=== PATIENT | male | born 1990 | race Caucasian/White ===

== ENCOUNTER 2017-10-29 08:40 | Inpatient (IN) | payer BC ==
[2017-10-29 09:47] LABS: #Basophils 0.1 thou/uL (0.0-0.2); #Eosinphils 0.2 thou/uL (0.0-0.7); #Lymphocytes 1.7 thou/uL (1.20-3.40); #Monocytes 0.5 thou/uL (0.11-0.59); #Neutrophils 2.8 thou/uL (1.40-6.50); %Basophils 1.4 % (0.0-1.0); %Eosinophils 3.3 % (0.0-10.0); %Lymphocytes 32.1 % (21.0-51.0); %Monocytes 9.7 % (0.0-10.0); %Neutrophils 53.5 % (42.0-75.0); Hemoglobin 15.4 g/dL (14.0-18.0); Mean Corpuscular HGB CONC 35.6 g/dL (32.0-36.0); Mean Corpuscular Hemoglobin 31.3 pg (27.0-31.0); Platelet Count 215 thou/uL (130-400); RBC Distribution Width 12.1 % (11.5-14.5); Red Blood Cell (RBC) Count 4.93 mill/uL (4.70-6.10); White Blood Cell (WBC) Count 5.3 thou/uL (4.8-10.8)
[2017-10-29 10:07] LABS: ALT (SGPT) 41 U/L (8-55); AST (SGOT) 28 U/L (5-34); Albumin 4.3 g/dL (3.5-5.0); Alkaline Phosphatase 44 U/L (40-150); Anion Gap 10 mmol/L (10-20); BUN (Urea Nitrogen) 13 mg/dL (8.9-20.6); Bilirubin, Total 0.4 mg/dL (0.2-1.2); Calc. Creatinine Clearance 0 mL/min (70-130); Calcium 9.7 mg/dL (7.8-10.44); Carbon Dioxide 26 mmol/L (22-29); Chloride 105 mmol/L (98-107); Estimated GFR-MDRD Greater than 90; Globulin 3.5 g/dL (2.4-3.5); Glucose 103 mg/dL (70-105); Potassium 4.3 mmol/L (3.5-5.1); Protein, Total 7.8 g/dL (6.0-8.3); Sodium 137 mmol/L (136-145)
[2017-10-29] MEDS ORDERED: cloNIDine 0.1 MG TAB PO PRN (11:47)
[2017-10-29] MEDS ORDERED: Lorazepam 1 MG TAB PO PRN (11:47)
[2017-10-29] MEDS ORDERED: traMADol HCl 50 MG TAB PO PRN (11:47)
[2017-10-29] MEDS ORDERED: hydrALAZINE 20 MG/ML VIAL SLOW IVP PRN (11:47)
[2017-10-29] MEDS ORDERED: Bisacodyl 5 MG TAB PO PRN ×2 (11:47)
[2017-10-29] MEDS ORDERED: Nitroglycerin 0.4 MG TAB (25 Tab Bottle) SL PRN (11:47)
[2017-10-29] MEDS ORDERED: Ondansetron HCl/PF 4 MG/2 ML Vial IVP PRN (11:47)
[2017-10-29] MEDS ORDERED: Acetaminophen 325 MG TAB PO PRN (11:47)
[2017-10-29] MEDS ORDERED: Mag-Al 1200 mg/1200 mg/30 ML UDCUP PO PRN (11:47)
[2017-10-29] MEDS ORDERED: Diabetic Tussin 200 MG/10 ML UDCUP PO PRN (11:47)
[2017-10-29] MEDS ORDERED: Benzonatate 100 MG CAP PO PRN (11:47)
[2017-10-29] MEDS ORDERED: Calcium Carbonate 500 MG ChewTAB PO PRN (11:47)
[2017-10-29] MEDS ORDERED: Loratadine 10 MG TAB PO PRN (11:47)
[2017-10-29] MEDS ORDERED: Senokot 8.6 MG TAB PO PRN ×2 (11:47)
--- NOTE | 2017-10-29 12:34 | RAD ---
TWO VIEWS LEFT TIBIA AND FIBULA: HISTORY: Cellulitis. FINDINGS: AP and lateral views left tibia and fibula demonstrate no evidence of left tibial or fibular fracture s, subluxations, or bony lesions. IMPRESSION: Normal 2 views left tibia and fibula. POS: [facility]
--- NOTE | 2017-10-29 13:03 | ULT ---
VENOUS DOPPLER: HISTORY: Left lower extremity pain and edema. FINDINGS: Multiple longitudinal and transverse images of the left lower extremity venous system are obtained us ing a multihertz linear ray transducer. Real-time, color flow, and spectral waveform Doppler analysi s is used to evaluate the left lower extremity venous system. Images demonstrate a left enlarged groin lymph node having 3 dimensional measurements of 3.3 x 1.5 x approximately 6 cm. The left common femoral, superficial femoral, femoral profunda, popliteal, posterior tibial vein, pos t-trifurcation veins, and left greater saphenous vein are obtained. IMPRESSION: 1. Enlarged left groin lymph node. 2. No evidence of left lower extremity deep venous thrombosis. POS: [facility]
[2017-10-29 13:24] VITALS: BMI 38.9
[2017-10-29] MEDS ORDERED: PROVENTIL INHALER 6.7 G (200 INHALATIONS) INH PRN (13:26)
--- NOTE | 2017-10-29 13:59 | HP ---
PRIMARY CARE PHYSICIAN: [facility]. HISTORY OF PRESENTING ILLNESS: Mr. Mack is a 27-year-old healthy male without any significant past medical history who presented to the emergency room with complaints of worsening of left lower extremity redness and pain. History is mainly obtained by the patient himself and electronic medical records have been reviewed. Case has been discussed with the admitting ER physician, Dr. Bearden. According to Mr. Mack, he has been feeling fine up until Tuesday of this week and today, Tuesday. He started to notice that his left leg is turning red on Tuesday and by Tuesday he was running high-grade fever with chills. He presented to the outside clinic on Tuesday and was prescribed clindamycin, which he has been taking for 3 days without improvement. He actually noticed that his redness and pain is worse, so he presented to the ER. He denies any trauma or insect bites. [place], but was wearing jeans and boots. Otherwise, he denies any other recent illnesses. He denies any chest pain, shortness of breath, nausea, vomiting, diarrhea, abdominal pain, muscle weakness or joint pain. No rash. Upon presentation to the emergency room, he was hemodynamically stable. He underwent an x-ray of the tibia and fibula area, which was unremarkable. He also underwent a lower extremity ultrasound, which was negative for DVT. He was given vancomycin and Zosyn and is now being admitted to medical floor for left lower extremity cellulitis. PAST MEDICAL HISTORY: History of mild intermittent asthma. PAST SURGICAL HISTORY: Tonsillectomy and adenoidectomy and ear tube at least 13 times. PSYCHIATRIC HISTORY: None. SOCIAL HISTORY: He has no history of drug, tobacco or alcohol abuse. He drinks socially. FAMILY HISTORY- Mom ands aunt with breast cancer. Great Grandparents had stroke and heart disease ALLERGIES: No known medication allergies. CURRENT MEDICATIONS: Proventil as needed. The patient does not have to use it quite often. REVIEW OF SYSTEMS: It is negative except for those mentioned in the history and physical. Constitutional: Weight loss or gain, ability to conduct usual activities. Skin: Rash, itching. Eyes: Double vision, pain. ENT/Mouth: Nose bleeding, neck stiffness, pain, tenderness. Cardiovascular: Palpitations, dyspnea on exertion, orthopnea. Respiratory: Shortness of breath, wheezing, cough, hemoptysis, fever or night sweats. Gastrointestinal: Poor appetite, abdominal pain, heartburn, nausea, vomiting, constipation, or diarrhea. Genitourinary: Urgency, frequency, dysuria, nocturia. Musculoskeletal: Pain, swelling. Neurologic/Psychiatric: Anxiety, depression. Allergy/Immunologic: Skin rash, bleeding tendency. PHYSICAL EXAMINATION: VITAL SIGNS: Upon presentation, blood pressure 125/87, pulse of 80, respirations 18, saturating 97% on room air and temperature 98.1. GENERAL: No acute distress, awake, alert and oriented x3. HEENT: Mucous membrane is moist and pink. No oropharyngeal exudate or erythema. Head is normocephalic and atraumatic. Pupils are equal, reactive to light and accommodation. Extraocular movement intact. NECK: Supple without any lymphadenopathy, JVD or bruit. CHEST: Clear to auscultation without any wheezing, rales or rhonchi. Rhythm is regular without any murmur, rubs or gallops. ABDOMEN: Obese, soft, nontender and nondistended. Positive bowel sounds. EXTREMITIES: Show area of cellulitis in the left lower leg, extending from midline to the sides, encroaching upwards, but limited to below the knee and up from the ankle. He has some tenderness and warmth to this area. He has drawn a boundary to this redness and the redness extends beyond that boundary. NEUROLOGIC: Nonfocal. SKIN: The cellulitic rash on the lower extremity as above, otherwise no other rashes, feels warm and dry to touch. PSYCHIATRIC: Normal affect. LABORATORY DATA: CBC is unremarkable. Serum chemistries unremarkable. C- reactive protein is elevated to 4.47. Lactic acid is normal at 0.8. IMAGING DATA: X-ray of the tibia and fibula by my review has no evidence of any osseous abnormalities or any bony lesions. Lower extremity ultrasound is negative for DVT, left leg. It does show enlarged left groin lymph node. IMPRESSION AND PLAN: 1. Cellulitis of left lower extremity. The patient will be continued on the antibiotics started in the emergency room, namely vancomycin and Zosyn. Blood cultures have been started. He has failed outpatient treatment with clindamycin. We will add probiotics as well. He most likely will require at least 2-3 days of IV antibiotics for clinical improvement. Monitor clinical progress on a daily basis. 2. Deep venous thrombosis and gastrointestinal prophylaxis. 3. History of asthma. We will put him on nebulizers as needed and albuterol as needed. The patient is not having any symptoms related to his asthma at this time. DISPOSITION: Mr. Mack is currently being admitted for failed outpatient treatment of left lower extremity cellulitis. Estimated length of stay is at least 2-3 midnights. MTDD
[2017-10-29] MEDS: Piperacillin/Tazobactam 3.375 GM in Sodium Chloride 0.9% 100 ML IVPB SCH ×2 (14:23→20:24)
[2017-10-29] MEDS ORDERED: Vancomycin HCl 1 GM in Premix Bag 1 BAG IVPB SCH (21:00)
[2017-10-30] MEDS: Piperacillin/Tazobactam 3.375 GM in Sodium Chloride 0.9% 100 ML IVPB SCH ×4 (03:04→20:15)
[2017-10-30 04:54] LABS: #Eosinphils 0.3 thou/uL (0.0-0.7); #Lymphocytes 2.2 thou/uL (1.20-3.40); #Monocytes 0.6 thou/uL (0.11-0.59); #Neutrophils 3.5 thou/uL (1.40-6.50); %Basophils 0.7 % (0.0-1.0); %Eosinophils 5.1 % (0.0-10.0); %Lymphocytes 32.9 % (21.0-51.0); %Monocytes 9.2 % (0.0-10.0); %Neutrophils 52.2 % (42.0-75.0); Hemoglobin 13.2 g/dL (14.0-18.0); Mean Corpuscular HGB CONC 35.2 g/dL (32.0-36.0); Mean Corpuscular Hemoglobin 31.1 pg (27.0-31.0); Mean Corpuscular Volume 88.4 fl (80.0-94.0); Mean Platelet Volume 7.5 fL (7.4-10.4); Platelet Count 220 thou/uL (130-400); RBC Distribution Width 11.9 % (11.5-14.5); Red Blood Cell (RBC) Count 4.24 mill/uL (4.70-6.10); White Blood Cell (WBC) Count 6.8 thou/uL (4.8-10.8)
[2017-10-30 05:28] LABS: Anion Gap 9 mmol/L (10-20); BUN (Urea Nitrogen) 11 mg/dL (8.9-20.6); Calc. Creatinine Clearance 229 mL/min (70-130); Calcium 8.6 mg/dL (7.8-10.44); Carbon Dioxide 25 mmol/L (22-29); Chloride 107 mmol/L (98-107); Estimated GFR-MDRD Greater than 90; Glucose 116 mg/dL (70-105); Potassium 3.8 mmol/L (3.5-5.1); Sodium 137 mmol/L (136-145)
[2017-10-30] MEDS: Enoxaparin Sodium 40 MG/0.4 ML SYRINGE SC SCH (08:01)
[2017-10-30] MEDS: Saccharomyces boulardii 250 MG CAP PO SCH (08:02)
--- NOTE | 2017-10-30 12:01 | PDOC.PN ---
- Subjective Encounter Start Date: 10/30/17 Encounter Start Time: 11:56 Subjective: feels very good.leg pain and swelling much better - Objective MAR Reviewed: Yes Vital Signs & Weight: Vital Signs (12 hours) Temp Pulse Resp BP Pulse Ox 10/30/17 11:00 98.1 F 72 20 135/81 95 10/30/17 08:00 98.1 F 72 20 118/79 95 10/30/17 03:49 97.8 F 73 20 104/67 94 L I&O: 10/29/17 10/30/17 10/31/17 06:59 06:59 06:59 Intake Total 1300 Balance 1300 Result Diagrams: 10/30/17 04:34 10/30/17 04:34 Additional Labs: Microbiology 10/29/17 09:35 Venous blood - Right Arm Blood Culture - Preliminary Specimen has been received and culture in progress. No Growth to date. 10/29/17 09:30 Venous blood - Left Arm Blood Culture - Preliminary Specimen has been received and culture in progress. No Growth to date. Phys Exam - Physical Examination Constitutional: NAD HEENT: PERRLA, moist MMs, sclera anicteric, oral pharynx no lesions Neck: no nodes, no JVD, supple, full ROM Respiratory: no wheezing, no rales, no rhonchi, clear to auscultation bilateral Cardiovascular: RRR, no significant murmur, no rub, gallop Gastrointestinal: soft, non-tender, no distention, positive bowel sounds Musculoskeletal: no edema, pulses present, edema present improved erythema of left leg Neurological: non-focal, normal sensation, moves all 4 limbs Psychiatric: normal affect, A&O x 3 Skin: no rash Dx/Plan (1) Left leg cellulitis Code(s): L03.116 - CELLULITIS OF LEFT LOWER LIMB Status: Acute (2) Asthma Code(s): J45.909 - UNSPECIFIED ASTHMA, UNCOMPLICATED Status: Acute - Plan DVT proph w/SCDs cont IV ABx.clinically better -: alaina BRENNER on PO ABx tomorrow * . Review of Systems - Review of Systems Constitutional: negative: fever, chills, sweats, weakness, malaise, other ENT: negative: Ear Pain, Ear Discharge, Nose Pain, Nose Discharge, Nose Congestion, Mouth Pain, Mouth Swelling, Throat Pain, Throat Swelling, Other Respiratory: negative: Cough, Dry, Shortness of Breath, Hemoptysis, SOB with Excertion, Pleuritic Pain, Sputum, Wheezing Cardiovascular: negative: chest pain, palpitations, orthopnea, paroxysmal nocturnal dyspnea, edema, light headedness, other Gastrointestinal: negative: Nausea, Vomiting, Abdominal Pain, Diarrhea, Constipation, Melena, Hematochezia, Other Genitourinary: negative: Dysuria, Frequency, Incontinence, Hematuria, Retention , Other Musculoskeletal: negative: Neck Pain, Shoulder Pain, Arm Pain, Back Pain, Hand Pain, Leg Pain, Foot Pain, Other Skin: Rash. negative: Lesions, Jose, Bruising, Other Neurological: negative: Weakness, Numbness, Incoordination, Change in Speech, Confusion, Seizures, Other - Medications/Allergies Allergies/Adverse Reactions: Allergies Allergy/AdvReac Type Severity Reaction Status Date / Time No Known Drug Allergies Allergy Verified 10/29/17 13:32 Medications: Current Medications Acetaminophen (Tylenol) 650 mg PO Q4H PRN PRN Reason: Headache/Fever or Pain Al Hydroxide/Mg Hydroxide (Maalox) 30 ml PO Q6H PRN PRN Reason: Heartburn or Indigestion Albuterol Sulfate (Proventil Hfa) 1 puff INH QID PRN PRN Reason: sob Albuterol/Ipratropium (Duoneb) 3 ml NEB [id number] PRN PRN Reason: SOB &/or Wheezing Benzonatate (Tessalon) 100 mg PO Q4H PRN PRN Reason: Cough Bisacodyl (Dulcolax) 10 mg PO DAILYPRN PRN PRN Reason: Constipation Bisacodyl (Dulcolax) 10 mg PO DAILYPRN PRN PRN Reason: Constipation Calcium Carbonate (Tums) 1,000 mg PO Q4H PRN PRN Reason: Heartburn or Indigestion Clonidine (Catapres) 0.1 mg PO Q4H PRN PRN Reason: SBP>160 Enoxaparin Sodium (Lovenox) 40 mg SC 0900 E[facility] Last Admin: 10/30/17 08:01 Dose: 40 mg Guaifenesin (Robitussin Sf) 200 mg PO Q4H PRN PRN Reason: Cough Hydralazine HCl (Apresoline) 10 mg SLOW IVP Q4H PRN PRN Reason: Systolic BP > 170 Piperacillin Sod/Tazobactam (Sod 3.375 gm/ Sodium Chloride) 100 mls @ 200 mls/ hr IVPB 0200,0800,1400,2000 [facility] Last Admin: 10/30/17 08:01 Dose: 100 mls Vancomycin HCl 2 gm/ Sodium (Chloride) 500 mls @ 250 mls/hr IVPB 0700,1500, 2300 [facility] Last Admin: 10/30/17 05:57 Dose: 500 mls Loratadine (Claritin) 10 mg PO DAILYPRN PRN PRN Reason: Sinus Symptoms Lorazepam (Ativan) 1 mg PO Q4H PRN PRN Reason: Anxiety/Agitation Miscellaneous Medication (Pharmacy To Dose) 1 each IVPB PRN PRN PRN Reason: Pharmacy to dose Nitroglycerin (Nitrostat) 0.4 mg SL Q5MIN PRN PRN Reason: Chest Pain Ondansetron HCl (Zofran) 4 mg IVP Q6H PRN PRN Reason: Nausea/Vomiting Saccharomyces Boulardii (Florastor) 250 mg PO DAILY [facility] Last Admin: 10/30/17 08:02 Dose: 250 mg Senna (Senokot) 2 tab PO HSPRN PRN PRN Reason: Constipation Tramadol HCl (Ultram) 50 mg PO Q4H PRN PRN Reason: Moderate Pain (4-6)
[2017-10-30 14:24] LABS: Vancomycin, Trough 11.8 ug/mL
[2017-10-31] MEDS: Piperacillin/Tazobactam 3.375 GM in Sodium Chloride 0.9% 100 ML IVPB SCH ×2 (02:09→09:50)
[2017-10-31] MEDS: Enoxaparin Sodium 40 MG/0.4 ML SYRINGE SC SCH (08:40)
[2017-10-31] MEDS: Saccharomyces boulardii 250 MG CAP PO SCH (08:40)
[2017-10-31 08:54] VITALS: BP 119/81; TEMP 97.9
[2017-10-31] MEDS ORDERED: Piperacillin/Tazobactam 3.375 GM in Sodium Chloride 0.9% 100 ML IVPB SCH (12:00)
--- NOTE | 2017-10-31 12:41 | DIS ---
DATE OF ADMISSION: 10/29/2017 DATE OF DISCHARGE: 10/31/2017 CONDITION AT THE TIME OF DISCHARGE: Stable and improved. DISCHARGE DIAGNOSES: 1. Left lower extremity cellulitis, much improved. 2. History of asthma, stable. DISCHARGE MEDICATIONS: New medication, doxycycline 100 mg p.o. b.i.d. for 7 more days, Omnicef 300 m g p.o. b.i.d. for 7 more days, Florastor 250 mg p.o. daily for 10 days and resume albuterol inhaler. PRIMARY CARE PHYSICIAN: None. PROCEDURES DONE IN THE HOSPITAL: Include, 1. X-ray of the tibia and fibula which are unremarkable. 2. Ultrasound of the left lower extremity which is negative for any DVT. It does show enlarged left groin lymph node. The patient is instructed to set up care with one of the PCP's at [facility]. HISTORY OF PRESENTING ILLNESS: Mr. Mack is a very pleasant 27-year-old male who presented to the hospital with failed outpatient therapy for left lower extremity cellulitis. He had developed it farideh te about 3 or 4 days ago and was on oral antibiotic prescribed by the [facility], but continued to have worsening redness and was running high grade fever with chills. He was on clindamycin at th e time of presentation. He was otherwise hemodynamically stable. X-ray of the leg and ultrasound wa s done in the emergency room, which were unremarkable. He was admitted on IV antibiotic with presump tive diagnosis of cellulitis. Please see admission history dictated by myself for further details. HOSPITAL COURSE: The patient had dramatic improvement in his erythema, tenderness, and warmth of the left lower extremity with IV antibiotics. He was treated with vancomycin and Zosyn while in the [facility]. Blood cultures were obtained and were negative until date. At this time, he is back to being himself and his lower extremity erythema has almost completely resolved. He does have some warmth, but is otherwise hemodynamically stable, walking up and down the halls and eager to go home. I think he can be transitioned to oral antibiotics at this time. Suspecting clindamycin resistance. At thi s time, he will be treated with dual antibiotic therapy for MRSA as well as gram negative and MSSA an d is discharged on doxycycline and Omnicef. He is encouraged to follow up with the primary care phys ashley locally. He was seen and examined prior to discharge. PHYSICAL EXAMINATION: VITAL SIGNS: This morning temperature 97.9, pulse of 76, respirations 18, saturating 95% on room air , blood pressure 119/81. GENERAL: He is walking up and down the caceres with his father. No acute distress, awake, alert, and o riented x3. CHEST: Clear to auscultation. HEART: Rate and rhythm is regular. MUSCULOSKELETAL: Lower extremity erythema, tenderness, and warmth are much improved in the left leg. Discharge plan was discussed with the patient and his father and they verbalized understanding.
== END 2017-10-31 12:47 | disposition home or self-care (01) | DRG 603 ==
LOC: ERS 08:40 → T4-B 11:43
PROVIDERS: ADMIT Internal Medicine; ATTEND Internal Medicine
DX: L03.116 Cellulitis of left lower limb (principal); J45.909 Unspecified asthma, uncomplicated
CPT/HCPCS: 36415; 80048; 80053; 80202; 83605; 85025; 86140; 87040; 96365; J1650; J2543; J3370; J7050